=== PATIENT | male | born 1980 | race Caucasian/White ===

== ENCOUNTER → 2018-06-06 | Outpatient (CLI) | payer BC ==
[~2018-06-06] MED LIST: IOHEXOL 240 MG/ML 50ML VIAL. ONE; IOHEXOL 240 MG/ML 50ML VIAL. PO ONE; IOHEXOL 300 MG/ML 75 ML VIAL. IV ONE
--- NOTE | 2018-06-06 13:55 | RAD ---
CT ABD PELV W/ORAL IV CONTRAST Indication: Abdominal pain, constipation and diarrhea Technique: Postcontrast CT imaging was performed of the abdomen pelvis, multiplanar reconstruction images submitted. Oral contrast was also given. One or more of the following individualized dose reduction techniques were utilized for this examination: 1. Automated exposure control 2. Adjustment of the mA and/or kV according to patient size 3. Use of iterative reconstruction technique. Comparison: None Findings: There is no abnormality of the limited visualized lung bases. No focal abnormality is identified of the liver, spleen, pancreas. There are a couple of accessory spleens. Gallbladder is present without obvious intraluminal abnormality by CT. Both kidneys enhance, no hydronephrosis. Small 0.3 cm hypodense lesion inferior right kidney is too small to accurately characterize. There is no adrenal nodularity. Bowel is not significantly dilated. Appendix cannot be confidently identified if still present. There are multiple nonspecific mesenteric nodes, largest and most numerous in the right lower quadrant with largest of these nodes about 1 cm short axis dimension. No free air or free fluid is identified. IMPRESSION: 1. Appendix is not confidently identified if still present, no significant localized pericecal inflammatory type change. There are multiple nonspecific mesenteric nodes more numerous and larger in the right lower quadrant, could be associated with mesenteritis, neoplastic etiology considered less likely although no older exams to evaluate for change. Potentially follow-up exam to assess size stability such as in 4 months could be beneficial. Electronically signed by: Amador Linton MD (06/06/2018 1:52 PM) [facility] [email or web address]
== END | disposition home or self-care (01) ==
LOC: CT 12:36
PROVIDERS: ATTEND Physician Assistant
DX: K52.89 Other specified noninfective gastroenteritis and colitis (principal); R59.0 Localized enlarged lymph nodes
CPT/HCPCS: 74177; Q9966; Q9967